=== PATIENT | female | born 1990 | race African-American/Black ===

== ENCOUNTER 2017-05-23 06:19 | Emergency (ER) | payer SELFPAY ==
[~2017-05-23] VITALS: Ht 167.6 cm; Wt 78.0 kg
[~2017-05-23 06:19] MED LIST: AUGM875T PO
[2017-05-23 06:21] VITALS: BP 125/82; PULSE 82; RESP 12; TEMP 97.8; O2SAT 98
[2017-05-23] MEDS ORDERED: IBUP800T23 PO (06:43)
[2017-05-23] MEDS ORDERED: BACL10TA PO (06:43)
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
[2017-05-23] MEDS ORDERED: ORPHENADRINE INJ 60 MG/2 ML AMP IM ONE (06:45)
[2017-05-23] MEDS ORDERED: KETOROLAC TROMETHAMINE 60 MG/2 ML (IM) VIAL IM ONE (06:45)
== END 2017-05-23 07:01 | disposition home or self-care (01) ==
LOC: NEPD 06:19
DX: M25.552 Pain in left hip (principal); G89.29 Other chronic pain; Z79.899 Other long term (current) drug therapy
CPT/HCPCS: 96372; 99284; J1885; J2360